=== PATIENT | male | born 1965 | race Caucasian/White ===

== ENCOUNTER 2017-11-02 11:23 | Day surgery (SDC) | payer BC ==
[~2017-11-02 11:23] MED LIST: Lactated Ringers 1,000 ML IV SCH; Lidocaine 2% 5 ML SDV ONE; Propofol 200 MG/20 ML SDV ONE; Sodium Chloride 0.9% 10 ML Syringe FLUSH PRN; Sodium Chloride 0.9% 2.5 ML Syringe FLUSH PRN
--- NOTE | 2017-11-02 12:52 | PCM.PREANE ---
Preanesthetic Assessment - Anesthesia/Transfusion/Family Hx Anesthesia History: Prior Anesthesia Without Reaction Family History of Anesthesia Reaction: No Transfusion History: Prior Transfusion Without Reaction Intubation History: Unknown - Review of Systems General: No Symptoms Pulmonary: No Symptoms Cardiovascular: No Symptoms Gastrointestinal: Abdominal Pain Neurological: No Symptoms Other: Reports: None - Physical Assessment Height: 1.73 m Weight: 91.626 kg ASA Class: 3 Mental Status: Alert & Oriented x3 Airway Class: Mallampati = 2 Dentition: Reports: Normal Dentition Thyro-Mental Finger Breadths: 3 Mouth Opening Finger Breadths: 3 ROM/Head Extension: Full Lungs: Clear to Auscultation, Normal Respiratory Effort Cardiovascular: Regular Rate, Regular Rhythm - Allergies Allergies/Adverse Reactions: Allergies Allergy/AdvReac Type Severity Reaction Status Date / Time Iodinated Contrast- Oral and Allergy Anaphylactic Verified 10/30/17 12:26 IV Dye Shock - Blood Blood Available: No - Anesthesia Plan Pre-Op Medication Ordered: None - Acknowledgements Anesthesia Type Planned: MAC Pt an Appropriate Candidate for the Planned Anesthesia: Yes Alternatives and Risks of Anesthesia Discussed w Pt/Guardian: Yes Pt/Guardian Understands and Agrees with Anesthesia Plan: Yes PreAnesthesia Questionnaire Cardiovascular History: Reports: Blood Clots/VTE/DVT, Hypertension Other Cardiovascular History: anaphalictic reaction to Iodinated Contrast Dye- caused multiple organ failure, in a coma x4 weeks, developed blood clots in his legs, had IVC filter inserted as a precaution Respiratory History: Reports: Sleep Apnea Other Respiratory History: does not use a CPAP Gastrointestinal History: Reports: GERD, Pancreatitis, Other (See Below) Other Gastrointestinal History: h/o chronic pancreatitis sec to ETOH abuse, has pancreatic pseudocyst Musculoskeletal History: Reports: Back Pain, Chronic, Fracture Other Musculoskeletal History: hx of fx hand Psychiatric History: Reports: Anxiety, PTSD Endocrine/Metabolic History: Reports: Diabetes, Type I (A1C 6.1 recently), Obesity/BMI 30+ - Past Surgical History Head Surgeries/Procedures: Reports: None Cardiovascular Surgical History: Reports: Other (See Below) Other Cardiovascular Surgeries/Procedures: insertion of IVC filter GI Surgical History: Reports: EGD Musculoskeletal Surgical History: Reports: Arthroscopic Knee (rt. knee open surgery), Other (See Below) Other Musculoskeletal Surgeries/Procedures:: closed reduction percutaneus pinning right hand- pin removed - SUBSTANCE USE Smoking Status *Q: Current Every Day Smoker Tobacco Use Within Last Twelve Months: Smokeless Tobacco Recreational Drug Use History: No - HOME MEDS Home Medications: Home Meds Aspirin [Adult Low Dose Aspirin EC] 81 mg PO DAILY 10/30/17 [History] Buprenorphine HCl/Naloxone HCl [Suboxone 4 mg-1 mg Sl Film] 2 - 3 mg PO DAILY [History] Hydrochlorothiazide 25 mg PO DAILY 10/30/17 [History] Insulin Glarg,Human.Rec.Analog [Lantus] 20 unit SQ BEDTIME 10/30/17 [History] Insulin Lispro [HumaLOG] 5 unit SQ TIDMEALS 10/30/17 [History] Lisinopril 20 mg PO DAILY 10/30/17 [History] - CURRENT (IN HOUSE) MEDS Current Meds: Current Medications Lactated Ringer's (Ringers, Lactated) 1,000 mls @ 125 mls/hr IV ASDIRECTED VLAD Last Admin: 11/02/17 12:23 Dose: 125 mls/hr Sodium Chloride (Saline Flush) 10 ml FLUSH ASDIRECTED PRN PRN Reason: Keep Vein Open Sodium Chloride (Saline Flush) 2.5 ml FLUSH ASDIRECTED PRN PRN Reason: Keep Vein Open Sodium Chloride (Saline Flush) 10 ml FLUSH ASDIRECTED PRN PRN Reason: Keep Vein Open Sodium Chloride (Saline Flush) 2.5 ml FLUSH ASDIRECTED PRN PRN Reason: Keep Vein Open Discontinued Medications Lidocaine (Xylocaine-Mpf 2%) Confirm Administered Dose 5 ml .ROUTE .STK-MED ONE Stop: 11/02/17 07:34 Propofol (Diprivan 20 Ml) Confirm Administered Dose 400 mg .ROUTE .STK-MED ONE Stop: 11/02/17 07:35 Propofol (Diprivan 20 Ml) Confirm Administered Dose 1,400 mg .ROUTE .STK-MED ONE Stop: 11/02/17 07:38
--- NOTE | 2017-11-02 15:53 | OR ---
SURGEON: MICHAEL HELMS MD DATE OF PROCEDURE: 11/02/2017 PREOPERATIVE DIAGNOSES: 1. Abdominal pain. 2. Screening colonoscopy. POSTOPERATIVE DIAGNOSES: 1. Normal esophagogastroduodenoscopy. 2. Sigmoid colon polyp. 3. Descending colon polyp. PROCEDURE PERFORMED: Diagnostic esophagogastroduodenoscopy and screening colonoscopy. ANESTHESIA: MAC. INSTRUMENT USED: Olympus endoscope and colonoscope. EXTENT OF EXAM: To the second portion of duodenum, to the cecum. PREPARATION: Good. LIMITATIONS: None. INDICATION FOR EXAMINATION: The patient is a 52-year-old male with a history of chronic pancreatitis, who presents with chronic upper abdominal pain that has made better with the use of [id number] antacids. The decision was made to perform a diagnostic EGD to rule out any gastritis or esophagitis. The patient is also due for a screening colonoscopy. We discussed both procedures as well as expected perioperative course. We discussed the risks including bleeding, infection, damage to surrounding structures including perforation. The patient verbalized understanding and wishes to proceed. PROCEDURE IN DETAIL: The patient was brought into the endoscopy suite and placed in left lateral decubitus position. A time-out was completed verifying the patient's name, age, date of , allergies, and procedure to be performed. A bite block was placed in the patient's mouth and monitored anesthesia care was induced. Continuous oxygen was provided via nasal cannula throughout the procedure. After adequate sedation was achieved, a well lubricated endoscope was placed in the patient's mouth and advanced under direct visualization to the level of the second portion of duodenum. This appeared normal and a photograph was taken. The scope was then fully withdrawn while examining the color, texture, anatomy, and integrity of the mucosa of the upper GI tract. The mucosa of the small intestine appeared normal and to be free of pathology. The scope was brought in the stomach and a photograph was taken of the pylorus and GE junction. Both of these appeared normal. The stomach mucosa itself had no evidence of inflammation or ulceration. Biopsies were taken of the gastric antrum, body, and fundus and sent for pathologic review. The scope was then brought into the distal esophagus. A photograph was taken of the Z-line, which appeared normal. The scope was then fully withdrawn while examining the esophageal mucosa. This all appeared normal. The scope was then removed from the patient. This portion of procedure was terminated. A digital rectal exam was performed. This exam was within normal limits. A well lubricated colonoscope was inserted in the rectum and advanced under direct visualization to the level of the cecum. The cecum was identified by both visual and anatomic landmarks. A photograph was taken of the cecal cap. I was able to retroflex the scope within the cecum, but unable to take a picture. The scope was then fully withdrawn while examining the color, texture, anatomy, and integrity of the mucosa from the cecum to the anal canal. The patient was found to have 2 to 3 mm polyps within the descending colon and sigmoid colon. These were removed using a cold biopsy forceps. The scope was then brought into the rectum and retroflexed to allow visualization of the anal canal opening. This appeared normal and a photograph was taken. The scope was then straightened out and removed from the patient. Cecum to anus time was 8 minutes. The patient tolerated the procedure well and was taken to PACU in stable condition. ENDOSCOPIC DIAGNOSES: 1. Normal esophagogastroduodenoscopy. 2. Sigmoid colon polyp. 3. Descending colon polyp. RECOMMENDATIONS: Follow up in clinic in 2 weeks. ADONAY LAI /[id number]
== END 2017-11-02 14:10 | disposition home or self-care (01) ==
LOC: MW.SDS 11:23
PROVIDERS: ATTEND Surgery
DX: Z12.11 Encounter for screening for malignant neoplasm of colon (principal); D12.4 Benign neoplasm of descending colon; D12.5 Benign neoplasm of sigmoid colon; F41.9 Anxiety disorder, unspecified; E10.9 Type 1 diabetes mellitus without complications; G47.19 Other hypersomnia; I10 Essential (primary) hypertension; G47.00 Insomnia, unspecified; G47.33 Obstructive sleep apnea (adult) (pediatric); F43.10 Post-traumatic stress disorder, unspecified; E66.9 Obesity, unspecified; F17.290 Nicotine dependence, other tobacco product, uncomplicated; Z79.899 Other long term (current) drug therapy; Z99.89 Dependence on other enabling machines and devices; Z91.041 Radiographic dye allergy status; Z79.82 Long term (current) use of aspirin; Z79.4 Long term (current) use of insulin; Z68.30 Body mass index [BMI] 30.0-30.9, adult; Z86.718 Personal history of other venous thrombosis and embolism
CPT/HCPCS: 43239; 45380; J7120; 00813; 88305; 88312; J2704

== ENCOUNTER 2021-04-26 23:28 | Observation (INO) | payer BC ==
[2021-04-26] MEDS ORDERED: Sodium Chloride 0.9% 10 ML Syringe FLUSH PRN (23:53)
[2021-04-26] MEDS ORDERED: Sodium Chloride 0.9% 2.5 ML Syringe FLUSH PRN (23:53)
--- NOTE | 2021-04-26 23:57 | EDM.PDOC ---
ED HPI GENERAL MEDICAL PROBLEM - General Chief Complaint: Diabetic Complaint Stated Complaint: LOW BLOOD SUGAR Time Seen by Provider: 04/26/21 23:29 - History of Present Illness INITIAL COMMENTS - FREE TEXT/NARRATIVE: 56-year-old male with a history of type 1 diabetes, prior IVC filter related blood clots on Eliquis, hypertension presents with stubborn hypoglycemia. Patient notes that over the last 2 to 3 days he has had some unusually low blood sugars. This evening the patient took 2 units of fast acting insulin with dinner and then about an hour later took his normal long-acting insulin shot. Over the last few hours he is been unable to keep his blood sugar up despite a large amount of p.o. sugar. They were able to get it up to 100 but then it dropped again to 40. On EMS arrival he was given D50 and then started on D10 normal saline. The patient denies any other symptoms, no cough no chest pain no shortness of breath no abdominal pain no dysuria no hematuria no fever. He has not had trouble with stubborn hypoglycemia in the past. Treatments MANAGER LATIN: Reports: IV/IO, Other Medication(s) Other Treatments MANAGER LATIN: D 10 infusing - Related Data Allergies Allergy/AdvReac Type Severity Reaction Status Date / Time Iodinated Contrast Media Allergy Anaphylactic Verified 04/26/21 23:42 [Iodinated Contrast- Oral Shock and IV Dye] Home Meds: Home Meds Buprenorphine HCl/Naloxone HCl [Suboxone 4 mg-1 mg Sl Film] 2 - 3 mg PO DAILY 10/30/17 [History] Insulin Glarg,Human.Rec.Analog [Lantus] 20 unit SQ BEDTIME 10/30/17 [History] Insulin Lispro [HumaLOG] 5 unit SQ TIDMEALS 10/30/17 [History] Lisinopril 20 mg PO DAILY 10/30/17 [History] hydroCHLOROthiazide [Hydrochlorothiazide] 25 mg PO DAILY 10/30/17 [History] Apixaban [Eliquis] 5 mg PO BID 04/26/21 [History] Past Medical History Cardiovascular History: Reports: Blood Clots/VTE/DVT, Hypertension Other Cardiovascular History: anaphalictic reaction to Iodinated Contrast Dye- caused multiple organ failure, in a coma x4 weeks, developed blood clots in his legs, had IVC filter inserted as a precaution Respiratory History: Reports: Sleep Apnea Other Respiratory History: does not use a CPAP Gastrointestinal History: Reports: GERD, Pancreatitis, Other (See Below) Other Gastrointestinal History: h/o chronic pancreatitis sec to ETOH abuse, has pancreatic pseudocyst Musculoskeletal History: Reports: Back Pain, Chronic, Fracture Other Musculoskeletal History: hx of fx hand Psychiatric History: Reports: Anxiety, PTSD Endocrine/Metabolic History: Reports: Diabetes, Type I (A1C 6.1 recently), Obesity/BMI 30+ - Past Surgical History Head Surgeries/Procedures: Reports: None Cardiovascular Surgical History: Reports: Other (See Below) Other Cardiovascular Surgeries/Procedures: insertion of IVC filter GI Surgical History: Reports: EGD Musculoskeletal Surgical History: Reports: Arthroscopic Knee (rt. knee open surgery), Other (See Below) Other Musculoskeletal Surgeries/Procedures:: closed reduction percutaneus pinning right hand- pin removed ED ROS GENERAL - Review of Systems Review Of Systems: See Below Free Text/Narrative/Comment: General: No fever. Skin: No rash. Eyes: No vision problems. ENT: No sore throat. Neck: No neck stiffness. Respiratory: No shortness of breath. Cardiac: No chest pain. Gastrointestinal: No nausea, vomiting or abdominal pain. Urinary: No dysuria. Musculoskeletal: No myalgias/arthralgias. Neurologic: No headache. ED EXAM GENERAL NO PERIP PULSE - Physical Exam Exam: See Below Text/Narrative:: General Appearance: No acute distress, appears comfortable Skin: No rash HEENT: Normocephalic/atraumatic, sclera anicteric, mucous membranes moist Neck: Normal range of motion Chest and Lungs: Bilateral breath sounds, clear to auscultation Cardiovascular: Regular rate and rhythm, no murmur Abdomen: Soft, non-tender Back: Normal Musculoskeletal: No edema or tenderness Neurologic: Awake, alert, no obvious deficits, moving all extremities Psychiatric: Appropriate, cooperative Course - Vital Signs Last Recorded V/S: Last Vital Signs Temp 97.9 F 04/26/21 23:39 Pulse 60 04/26/21 23:39 Resp 16 04/26/21 23:39 BP 105/63 04/26/21 23:39 Pulse Ox 95 04/26/21 23:39 - Orders/Labs/Meds Orders: Active Orders 24 hr Category Date Time Status Patient Status [ADT] Routine ADT 04/27/21 00:51 Active Accu Check [Blood Glucose Check, Bedside] [RC] ONETIME Care 04/27/21 00:30 Active Abdomen Pelvis w wo Cont [CT] Stat Exams 04/27/21 00:39 Stop Req CORONAVIRUS COVID-19 ETHAN [MOLEC] Stat Lab 04/27/21 00:58 Ordered Dextrose 5%-Normal Saline @ 100 MLS/HR(1000ml) Med 04/27/21 01:00 Ordered Dextrose 5%-0.9% NaCl [Dextrose 5%-Normal Saline] 1,000 ml IV ASDIRECTED Sodium Chloride 0.9% [Saline Flush] Med 04/26/21 23:53 Active 10 ml FLUSH ASDIRECTED PRN Sodium Chloride 0.9% [Saline Flush] Med 04/26/21 23:53 Active 2.5 ml FLUSH ASDIRECTED PRN Sodium Chloride 23.4% 154 meq Med 04/27/21 01:00 Active Dextrose 10% in Water 1,000 ml IV ASDIRECTED Saline Lock Insert [OM.PC] Stat Oth 04/26/21 23:54 Ordered Medication Orders Sodium Chloride 154 meq/ (Dextrose/Water) 1,038.5 mls @ 80 mls/hr IV ASDIRECTED VLAD Sodium Chloride (Sodium Chloride 0.9% 10 Ml Syringe) 10 ml FLUSH ASDIRECTED PRN PRN Reason: Keep Vein Open Last Admin: 04/27/21 00:31 Dose: 10 ml Documented by: CNADE Sodium Chloride (Sodium Chloride 0.9% 2.5 Ml Syringe) 2.5 ml FLUSH ASDIRECTED PRN PRN Reason: Keep Vein Open Last Admin: 04/27/21 00:31 Dose: 2.5 ml Documented by: CANDE Labs: Laboratory Tests 04/26/21 04/26/21 04/27/21 Range/Units 23:43 23:43 00:44 WBC 7.11 (4.0-11.0) K/uL RBC 4.68 (4.50-5.90) M/uL Hgb 13.0 (13.0-17.0) g/dL Hct 37.9 L (38.0-50.0) % MCV 81.0 (80.0-98.0) fL MCH 27.8 (27.0-32.0) pg MCHC 34.3 (31.0-37.0) g/dL RDW Std Deviation 39.9 (28.0-62.0) fl RDW Coeff of Radha 14 (11.0-15.0) % Plt Count 198 (150-400) K/uL MPV 10.20 (7.40-12.00) fL Neut % (Auto) 70.9 (48.0-80.0) % Lymph % (Auto) 16.2 (16.0-40.0) % Troup % (Auto) 11.5 (0.0-15.0) % Eos % (Auto) 1.0 (0.0-7.0) % Baso % (Auto) 0.4 (0.0-1.5) % Neut # (Auto) 5.0 (1.4-5.7) K/uL Lymph # (Auto) 1.2 (0.6-2.4) K/uL Troup # (Auto) 0.8 (0.0-0.8) K/uL Eos # (Auto) 0.1 (0.0-0.7) K/uL Baso # (Auto) 0.0 (0.0-0.1) K/uL Nucleated RBC % 0.0 /100WBC Nucleated RBCs # 0 K/uL Sodium 143 (136-148) mmol/L Potassium 3.4 L (3.5-5.1) mmol/L Chloride 101 (98-107) mmol/L Carbon Dioxide 33.8 H (21.0-32.0) mmol/L BUN 20 H (7.0-18.0) mg/dL Creatinine 1.2 (0.8-1.3) mg/dL Est Cr Clr Drug Dosing TNP Estimated GFR (MDRD) > 60.0 ml/min Glucose 74 (74-106) mg/dL POC Glucose 158 H (70-99) mg/dL Calcium 8.8 (8.5-10.1) mg/dL Total Bilirubin 0.5 (0.2-1.0) mg/dL AST 18 (15-37) IU/L ALT 25 (14-63) IU/L Alkaline Phosphatase 61 (46-116) U/L Total Protein 6.3 L (6.4-8.2) g/dL Albumin 3.7 (3.4-5.0) g/dL Globulin 2.6 (2.6-4.0) g/dL Albumin/Globulin Ratio 1.4 (0.9-1.6) Lipase 20 L (73-393) U/L Meds: Medications Generic Name Dose Route Start Last Admin Trade Name Freq PRN Reason Stop Dose Admin Sodium Chloride 154 meq/ 1,038.5 mls @ 80 mls/hr 04/27/21 01:00 Dextrose/Water IV ASDIRECTED VLAD Sodium Chloride 10 ml 04/26/21 23:53 04/27/21 00:31 Sodium Chloride 0.9% 10 Ml Syringe FLUSH 10 ml ASDIRECTED PRN Administration Keep Vein Open Sodium Chloride 2.5 ml 04/26/21 23:53 04/27/21 00:31 Sodium Chloride 0.9% 2.5 Ml Syringe FLUSH 2.5 ml ASDIRECTED PRN Administration Keep Vein Open Discontinued Medications Generic Name Dose Route Start Last Admin Trade Name Freq PRN Reason Stop Dose Admin Dextrose/Water Confirm 04/27/21 00:24 04/27/21 00:27 50% Dextrose In Water 50 Ml Syringe Administered 04/27/21 00:25 Not Given Dose 50 ml .ROUTE .STK-MED ONE Dextrose/Water 50 ml 04/27/21 00:27 04/27/21 00:28 50% Dextrose In Water 50 Ml Syringe IVPUSH 04/27/21 00:28 50 ml ONETIME ONE Administration Departure - Departure Time of Disposition: 00:59 Disposition: Refer to Observation Condition: Good Clinical Impression: Hypoglycemia - Discharge Information Referrals: Sai Mendez MD [Primary Care Provider] - Forms: ED Department Discharge Sepsis Event Note (ED) - Focused Exam Vital Signs: Vital Signs Temp Pulse Resp BP Pulse Ox 04/26/21 23:39 97.9 F 60 16 105/63 95 - My Orders Last 24 Hours: My Active Orders 04/26/21 23:53 Sodium Chloride 0.9% [Saline Flush] 10 ml FLUSH ASDIRECTED PRN Sodium Chloride 0.9% [Saline Flush] 2.5 ml FLUSH ASDIRECTED PRN 04/26/21 23:54 Saline Lock Insert [OM.PC] Stat 04/27/21 00:30 Accu Check [Blood Glucose Check, Bedside] [RC] ONETIME 04/27/21 00:39 Abdomen Pelvis w wo Cont [CT] Stat 04/27/21 00:51 Patient Status [ADT] Routine 04/27/21 00:58 CORONAVIRUS COVID-19 ETHAN [MOLEC] Stat 04/27/21 01:00 Dextrose 5%-Normal Saline @ 100 MLS/HR(1000ml) Dextrose 5%-0.9% NaCl [Dextrose 5%-Normal Saline] 1,000 ml IV ASDIRECTED Sodium Chloride 23.4% 154 meq Dextrose 10% in Water 1,000 ml IV ASDIRECTED - Assessment/Plan Last 24 Hours: My Active Orders 04/26/21 23:53 Sodium Chloride 0.9% [Saline Flush] 10 ml FLUSH ASDIRECTED PRN Sodium Chloride 0.9% [Saline Flush] 2.5 ml FLUSH ASDIRECTED PRN 04/26/21 23:54 Saline Lock Insert [OM.PC] Stat 04/27/21 00:30 Accu Check [Blood Glucose Check, Bedside] [RC] ONETIME 04/27/21 00:39 Abdomen Pelvis w wo Cont [CT] Stat 04/27/21 00:51 Patient Status [ADT] Routine 04/27/21 00:58 CORONAVIRUS COVID-19 ETHAN [MOLEC] Stat 04/27/21 01:00 Dextrose 5%-Normal Saline @ 100 MLS/HR(1000ml) Dextrose 5%-0.9% NaCl [Dextrose 5%-Normal Saline] 1,000 ml IV ASDIRECTED Sodium Chloride 23.4% 154 meq Dextrose 10% in Water 1,000 ml IV ASDIRECTED Assessment:: 56-year-old male presenting with refractory hypoglycemia now stabilized after IV dextrose. New liver dysfunction is a consideration infection is a consideration alcohol is a consideration though felt less likely. Labs are pending we will continue to reassess. 0100: Patient again required push of D50 for hypoglycemia. Labs are unremarkable. Patient discussed in full with hospitalist will admit for further care. Patient currently refusing contrasted CT scan due to prior renal dysfunction related to it. CT canceled for now. Unfortunately do not have any D10 made up. Given this patient will be started on D5.
[2021-04-27 00:10] LABS: BLOOD UREA NITROGEN,BUN 20 mg/dL (7.0-18.0); CARBON DIOXIDE,CO2 33.8 mmol/L (21.0-32.0); CHLORIDE,CL 101 mmol/L (98-107); GLUCOSE RANDOM 74 mg/dL (74-106); LIPASE 20 U/L (73-393); POTASSIUM,K 3.4 mmol/L (3.5-5.1); SODIUM,NA 143 mmol/L (136-148)
[2021-04-27] MEDS ORDERED: 50% Dextrose in Water 50 ML Syringe ONE (00:24)
[2021-04-27] MEDS ORDERED: 50% Dextrose in Water 50 ML Syringe IVPUSH ONE (00:27)
[2021-04-27] MEDS ORDERED: Sodium Chloride 23.4% 154 MEQ in Dextrose 10% in Water 1,000 ML IV SCH ×2 (01:00)
[2021-04-27] MEDS ORDERED: Dextrose 5%-0.9% NaCl 1,000 ML IV SCH (01:00)
[2021-04-27] MEDS ORDERED: Ondansetron 4 MG/2 ML SDV IVPUSH ONE (01:06)
[2021-04-27] MEDS ORDERED: Acetaminophen 325 MG Tab PO PRN (02:53)
[2021-04-27] MEDS ORDERED: Ondansetron 4 MG/2 ML SDV IVPUSH PRN (02:54)
[2021-04-27] MEDS ORDERED: Albuterol/Ipratropium 3.0-0.5 MG/3 ML Neb Soln NEB PRN (02:54)
[2021-04-27] MEDS ORDERED: Dextrose 5%-Lactated Ringers 1,000 ML IV SCH (03:00)
[2021-04-27] MEDS ORDERED: Potassium Chloride 20 MEQ Tab.ER PO ONE (03:01)
[2021-04-27] MEDS ORDERED: Calcium Carbonate 500 MG Tab.Chew PO PRN (03:58)
[2021-04-27] MEDS ORDERED: Pantoprazole 40 MG in Sodium Chloride 0.9% 10 ML IV ONE (04:01)
--- NOTE | 2021-04-27 11:52 | PCM.HP.2 ---
H&P History of Present Illness - General Date of Service: 04/27/21 Admit Problem/Dx: Admission Diagnosis/Problem Admission Diagnosis/Problem Hypoglycemia Source of Information: Patient, Provider History Limitations: Reports: No Limitations - History of Present Illness Initial Comments - Free Text/Narative: 56-year-old male with a history of type 1 diabetes, prior IVC filter related blood clots on Eliquis, hypertension presents with refractory hypoglycemia. Patient notes that over the last 2 to 3 days he has had some unusually low blood sugars. This evening the patient took 2 units of fast acting insulin with dinner and then about an hour later took his normal long-acting insulin shot. Patient states that following his insulin administration his blood sugars have b een dropping to 40s and 50s and even after taking lots of carbs and juice by mouth he can barely get the sugars back up to 90s and then it falls back down with the next an hour or so. On EMS arrival he was given D50 and then started on D10 normal saline. The patient denies any other symptoms, no cough no chest pain no shortness of breath no abdominal pain no dysuria no hematuria no fever. He has not had trouble with stubborn hypoglycemia in the past. In the ER lab work was unremarkable, patient was started on dextrose LR in view of refractory hypoglycemia. Patient was admitted to the hospital for further management. Upon further questioning it looks like patient has lost significant weight over last few months. 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 Patient states that his hemoglobin A1c is 6.5 and he maintains a very tight blood sugar control. Patient denies chest pain, nausea, vomiting, abdominal pain, constipation, diarrhea. Overnight patient's dextrose gtt. was stopped and ever since patient's blood sugars have been steadily in 200s. Patient is eating and drinking well. - Related Data Allergies/Adverse Reactions: Allergies Allergy/AdvReac Type Severity Reaction Status Date / Time Iodinated Contrast Media Allergy Anaphylactic Verified 04/27/21 07:47 [Iodinated Contrast- Oral Shock and IV Dye] Home Medications: Home Meds Buprenorphine HCl/Naloxone HCl [Suboxone 4 mg-1 mg Sl Film] 2 - 3 mg PO DAILY 10/30/17 [History] Insulin Lispro [HumaLOG] 5 unit SQ TIDMEALS 10/30/17 [History] Lisinopril 20 mg PO DAILY 10/30/17 [History] hydroCHLOROthiazide [Hydrochlorothiazide] 25 mg PO DAILY 10/30/17 [History] Apixaban [Eliquis] 5 mg PO BID 04/26/21 [History] Insulin Glarg,Human.Rec.Analog [Lantus] 10 unit SUBCUT BEDTIME #1 ampule 04/27/21 [Rx] Past Medical History HEENT History: Reports: Impaired Vision Cardiovascular History: Reports: Blood Clots/VTE/DVT, Hypertension Other Cardiovascular History: anaphalictic reaction to Iodinated Contrast Dye- caused multiple organ failure, in a coma x4 weeks, developed blood clots in his legs, had IVC filter inserted as a precaution Respiratory History: Reports: Sleep Apnea Other Respiratory History: does not use a CPAP Gastrointestinal History: Reports: GERD, Pancreatitis, Other (See Below) Other Gastrointestinal History: h/o chronic pancreatitis sec to ETOH abuse, has pancreatic pseudocyst Musculoskeletal History: Reports: Back Pain, Chronic, Fracture Other Musculoskeletal History: hx of fx hand Psychiatric History: Reports: Addiction, Anxiety, PTSD Endocrine/Metabolic History: Reports: Diabetes, Type I, Obesity/BMI 30+ - Past Surgical History Head Surgeries/Procedures: Reports: None Cardiovascular Surgical History: Reports: Other (See Below) Other Cardiovascular Surgeries/Procedures: insertion of IVC filter GI Surgical History: Reports: EGD Musculoskeletal Surgical History: Reports: Arthroscopic Knee, Other (See Below) Other Musculoskeletal Surgeries/Procedures:: closed reduction percutaneus pinning right hand- pin removed Social & Family History - Tobacco Use Tobacco Use Status *Q: Never Tobacco User Second Hand Smoke Exposure: No - Caffeine Use Caffeine Use: Reports: Coffee - Recreational Drug Use Recreational Drug Use: No H&P Review of Systems - Review of Systems: Review Of Systems: See Below General: Denies: Fever, Chills, Malaise, Weakness Pulmonary: Denies: Shortness of Breath, Wheezing Cardiovascular: Denies: Chest Pain, Palpitations, Dyspnea on Exertion Gastrointestinal: Denies: Abdominal Pain, Anorexia, Black Stool Genitourinary: Denies: Dysuria, Frequency Musculoskeletal: Denies: Neck Pain, Shoulder Pain, Arm Pain, Back Pain Skin: Denies: Cyanosis, Jaundice, Mottled Psychiatric: Denies: Confusion, Depression, Mood Lability Exam - Exam Exam: See Below - Vital Signs Vital Signs: Last Vital Signs Temp 36.2 C 08/31/21 11:33 Pulse 55 L 04/27/21 11:33 Resp 22 H 04/27/21 11:33 BP 111/72 04/27/21 11:33 Pulse Ox 94 L 04/27/21 11:33 Weight: 91.172 kg - Exam General: Alert, Oriented, Cooperative Neck: Supple Lungs: Clear to Auscultation, Normal Respiratory Effort Cardiovascular: Regular Rate, Regular Rhythm, Normal S1, Normal S2 GI/Abdominal Exam: Normal Bowel Sounds, Soft, Non-Tender - Patient Data Lab Results Last 24 hrs: Laboratory Results - last 24 hr 04/26/21 04/26/21 04/27/21 Range/Units 23:43 23:43 00:44 WBC 7.11 (4.0-11.0) K/uL RBC 4.68 (4.50-5.90) M/uL Hgb 13.0 (13.0-17.0) g/dL Hct 37.9 L (38.0-50.0) % MCV 81.0 (80.0-98.0) fL MCH 27.8 (27.0-32.0) pg MCHC 34.3 (31.0-37.0) g/dL RDW Std Deviation 39.9 (28.0-62.0) fl RDW Coeff of Radha 14 (11.0-15.0) % Plt Count 198 (150-400) K/uL MPV 10.20 (7.40-12.00) fL Neut % (Auto) 70.9 (48.0-80.0) % Lymph % (Auto) 16.2 (16.0-40.0) % Haywood % (Auto) 11.5 (0.0-15.0) % Eos % (Auto) 1.0 (0.0-7.0) % Baso % (Auto) 0.4 (0.0-1.5) % Neut # (Auto) 5.0 (1.4-5.7) K/uL Lymph # (Auto) 1.2 (0.6-2.4) K/uL Haywood # (Auto) 0.8 (0.0-0.8) K/uL Eos # (Auto) 0.1 (0.0-0.7) K/uL Baso # (Auto) 0.0 (0.0-0.1) K/uL Nucleated RBC % 0.0 /100WBC Nucleated RBCs # 0 K/uL Sodium 143 (136-148) mmol/L Potassium 3.4 L (3.5-5.1) mmol/L Chloride 101 (98-107) mmol/L Carbon Dioxide 33.8 H (21.0-32.0) mmol/L BUN 20 H (7.0-18.0) mg/dL Creatinine 1.2 (0.8-1.3) mg/dL Est Cr Clr Drug Dosing TNP Estimated GFR (MDRD) > 60.0 ml/min Glucose 74 (74-106) mg/dL POC Glucose 158 H (70-99) mg/dL Calcium 8.8 (8.5-10.1) mg/dL Total Bilirubin 0.5 (0.2-1.0) mg/dL AST 18 (15-37) IU/L ALT 25 (14-63) IU/L Alkaline Phosphatase 61 (46-116) U/L Total Protein 6.3 L (6.4-8.2) g/dL Albumin 3.7 (3.4-5.0) g/dL Globulin 2.6 (2.6-4.0) g/dL Albumin/Globulin Ratio 1.4 (0.9-1.6) Lipase 20 L (73-393) U/L SARS-CoV-2 RNA (ETHAN) (NEGATIVE) 04/27/21 04/27/21 04/27/21 Range/Units 01:14 02:03 03:38 WBC (4.0-11.0) K/uL RBC (4.50-5.90) M/uL Hgb (13.0-17.0) g/dL Hct (38.0-50.0) % MCV (80.0-98.0) fL MCH (27.0-32.0) pg MCHC (31.0-37.0) g/dL RDW Std Deviation (28.0-62.0) fl RDW Coeff of Radha (11.0-15.0) % Plt Count (150-400) K/uL MPV (7.40-12.00) fL Neut % (Auto) (48.0-80.0) % Lymph % (Auto) (16.0-40.0) % Haywood % (Auto) (0.0-15.0) % Eos % (Auto) (0.0-7.0) % Baso % (Auto) (0.0-1.5) % Neut # (Auto) (1.4-5.7) K/uL Lymph # (Auto) (0.6-2.4) K/uL Haywood # (Auto) (0.0-0.8) K/uL Eos # (Auto) (0.0-0.7) K/uL Baso # (Auto) (0.0-0.1) K/uL Nucleated RBC % /100WBC Nucleated RBCs # K/uL Sodium (136-148) mmol/L Potassium (3.5-5.1) mmol/L Chloride (98-107) mmol/L Carbon Dioxide (21.0-32.0) mmol/L BUN (7.0-18.0) mg/dL Creatinine (0.8-1.3) mg/dL Est Cr Clr Drug Dosing Estimated GFR (MDRD) ml/min Glucose (74-106) mg/dL POC Glucose 138 H 273 H (70-99) mg/dL Calcium (8.5-10.1) mg/dL Total Bilirubin (0.2-1.0) mg/dL AST (15-37) IU/L ALT (14-63) IU/L Alkaline Phosphatase (46-116) U/L Total Protein (6.4-8.2) g/dL Albumin (3.4-5.0) g/dL Globulin (2.6-4.0) g/dL Albumin/Globulin Ratio (0.9-1.6) Lipase (73-393) U/L SARS-CoV-2 RNA (ETHAN) NEGATIVE (NEGATIVE) 04/27/21 04/27/21 04/27/21 Range/Units 06:29 07:33 11:13 WBC (4.0-11.0) K/uL RBC (4.50-5.90) M/uL Hgb (13.0-17.0) g/dL Hct (38.0-50.0) % MCV (80.0-98.0) fL MCH (27.0-32.0) pg MCHC (31.0-37.0) g/dL RDW Std Deviation (28.0-62.0) fl RDW Coeff of Radha (11.0-15.0) % Plt Count (150-400) K/uL MPV (7.40-12.00) fL Neut % (Auto) (48.0-80.0) % Lymph % (Auto) (16.0-40.0) % [place]wood % (Auto) (0.0-15.0) % Eos % (Auto) (0.0-7.0) % Baso % (Auto) (0.0-1.5) % Neut # (Auto) (1.4-5.7) K/uL Lymph # (Auto) (0.6-2.4) K/uL [place]wood # (Auto) (0.0-0.8) K/uL Eos # (Auto) (0.0-0.7) K/uL Baso # (Auto) (0.0-0.1) K/uL Nucleated RBC % /100WBC Nucleated RBCs # K/uL Sodium (136-148) mmol/L Potassium (3.5-5.1) mmol/L Chloride (98-107) mmol/L Carbon Dioxide (21.0-32.0) mmol/L BUN (7.0-18.0) mg/dL Creatinine (0.8-1.3) mg/dL Est Cr Clr Drug Dosing Estimated GFR (MDRD) ml/min Glucose (74-106) mg/dL POC Glucose 344 H 335 H 286 H (70-99) mg/dL Calcium (8.5-10.1) mg/dL Total Bilirubin (0.2-1.0) mg/dL AST (15-37) IU/L ALT (14-63) IU/L Alkaline Phosphatase (46-116) U/L Total Protein (6.4-8.2) g/dL Albumin (3.4-5.0) g/dL Globulin (2.6-4.0) g/dL Albumin/Globulin Ratio (0.9-1.6) Lipase (73-393) U/L SARS-CoV-2 RNA (ETHAN) (NEGATIVE) Result Diagrams: 04/26/21 23:43 04/26/21 23:43 Sepsis Event Note - Evaluation Sepsis Screening Result: No Definite Risk - Focused Exam Vital Signs: Vital Signs Temp Pulse Resp BP Pulse Ox 04/27/21 11:33 36.2 C 55 L 22 H 111/72 94 L 04/27/21 07:44 36.7 C 74 22 H 111/55 L 95 04/27/21 03:16 36.1 C 68 16 145/72 H 98 04/27/21 02:29 66 16 114/61 97 04/27/21 01:13 56 L 17 128/71 94 L - Problem List (1) Diabetes mellitus SNOMED Code(s): 96970136 ICD Code: E11.9 - TYPE 2 DIABETES MELLITUS WITHOUT COMPLICATIONS Status: Acute Current Visit: Yes (2) Hypoglycemia SNOMED Code(s): 190779590 ICD Code: E16.2 - HYPOGLYCEMIA, UNSPECIFIED Status: Acute Current Visit: Yes Problem List Initiated/Reviewed/Updated: Yes Orders Last 24hrs: Active Orders 24 hr Category Date Time Status Patient Status [ADT] Routine ADT 04/27/21 00:51 Active Accu Check [Blood Glucose Check, Bedside] [RC] ONETIME Care 04/27/21 00:30 Active Accu Check [Blood Glucose Check, Bedside] [RC] Q4H Care 04/27/21 06:00 Active Antiembolic Devices [RC] PER UNIT ROUTINE Care 04/27/21 02:52 Active Oxygen Therapy Adult [Oxygen Therapy] [RC] ASDIRECTED Care 04/27/21 02:51 Active RT Aerosol Therapy [RC] ASDIRECTED Care 04/27/21 02:54 Active Telemetry Monitoring [Cardiac Monitoring] [RC] . Care 04/27/21 06:03 Active DIRECTED Vital Signs [RC] Q4H Care 04/27/21 08:00 Active ADA Diabetic [[employer] Diet] [DIET Diet 04/27/21 Breakfast Active ] Acetaminophen [TylenoL] Med 04/27/21 02:53 Active 650 mg PO Q4H PRN Albuterol/Ipratropium [DuoNeb 3.0-0.5 MG/3 ML] Med 04/27/21 02:54 Active 3 ml NEB Q4HRRT PRN Calcium Carbonate [Tums] Med 04/27/21 03:58 Active 500 mg PO Q2HR PRN Dextrose 5%-Lactated Ringers 1,000 ml Med 04/27/21 03:00 Active IV ASDIRECTED Ondansetron [Zofran] Med 04/27/21 02:54 Active 4 mg IVPUSH Q4H PRN Sodium Chloride 0.9% [Saline Flush] Med 04/26/21 23:53 Active 10 ml FLUSH ASDIRECTED PRN Sodium Chloride 0.9% [Saline Flush] Med 04/26/21 23:53 Active 2.5 ml FLUSH ASDIRECTED PRN SCD [Sequential Compression Device] [OM.PC] Routine Oth 04/27/21 02:52 Ordered Saline Lock Insert [OM.PC] Stat Oth 04/26/21 23:54 Ordered Medication Orders Acetaminophen (Acetaminophen 325 Mg Tab) 650 mg PO Q4H PRN PRN Reason: Pain Albuterol/Ipratropium (Albuterol/Ipratropium 3.0-0.5 Mg/3 Ml Neb Soln) 3 ml NEB Q4HRRT PRN PRN Reason: Shortness of Breath Calcium Carbonate/Glycine (Calcium Carbonate 500 Mg Tab.Chew) 500 mg PO Q2HR PRN PRN Reason: Indigestion Last Admin: 04/27/21 04:18 Dose: 500 mg Documented by: DRU Dextrose/Lactated Ringer's (Dextrose 5%-Lactated Ringers) 1,000 mls @ 125 mls/hr IV ASDIRECTED VLAD Last Infusion: 04/27/21 06:44 Dose: 0 mls/hr Documented by: Admin: 04/27/21 03:32 Dose: 125 mls/hr Documented by: DRU Ondansetron HCl (Ondansetron 4 Mg/2 Ml Sdv) 4 mg IVPUSH Q4H PRN PRN Reason: Nausea/Vomiting Sodium Chloride (Sodium Chloride 0.9% 10 Ml Syringe) 10 ml FLUSH ASDIRECTED PRN PRN Reason: Keep Vein Open Last Admin: 04/27/21 00:31 Dose: 10 ml Documented by: CANDE Sodium Chloride (Sodium Chloride 0.9% 2.5 Ml Syringe) 2.5 ml FLUSH ASDIRECTED PRN PRN Reason: Keep Vein Open Last Admin: 04/27/21 00:31 Dose: 2.5 ml Documented by: CANDE Assessment/Plan Comment:: Patient is a 56-year-old known type I diabetic who is on both mealtime short- acting insulin and long-acting insulin at bedtime Patient came in with refractory hypoglycemia Looks like patient has lost quite a bit of weight last few months, also has been overly exerting himself during the day does bring extra calories, likely hypoglycemia due to or dosing on insulin Patient was counseled about not overtreating his blood sugars and keep a goal of A1c around 6.8-6.9 instead of 6.4-6.5 as hypoglycemic episodes could have grave consequences Patient has been off insulin overnight and today, will resume his mealtime insulin from tomorrow and will decrease his bedtime insulin to 10 units, patient normally takes 15 units at bedtime Patient is recommended to check his blood sugars frequently every 4-6 hours for next 2 days Patient has been off the IV dextrose for a while now and is eating and drinking well blood sugars have been stable he feels like he is ready to go home, patient will be discharged today with close follow-up with his PCP.
== END 2021-04-27 15:45 | disposition home or self-care (01) ==
LOC: MW.ED 23:28 → MW.MS 04-27 00:51
PROVIDERS: ADMIT Student in an Organized Health Care Education/Training Program; ATTEND Student in an Organized Health Care Education/Training Program
DX: E11.649 Type 2 diabetes mellitus with hypoglycemia without coma (principal); I10 Essential (primary) hypertension; G47.30 Sleep apnea, unspecified; Z91.041 Radiographic dye allergy status; Z79.4 Long term (current) use of insulin; Z79.899 Other long term (current) drug therapy; Z20.822 Contact with and (suspected) exposure to COVID-19
CPT/HCPCS: 36415; 80053; 82947; 83690; 85025; 87635; 96374; 96375; 99285; A9270; C9113; G0378; J2405; J7042; J7121; U0002